=== PATIENT | male | born 1970 | race American Indian/Alaskan Native ===

== ENCOUNTER 2021-07-27 23:09 | Emergency (ER) | payer SELFPAY ==
[2021-07-28 02:46] VITALS: BP 113/75
[2021-07-28] MEDS ORDERED: ONDANSETRON 4 MG ODT TAB PO ONE (02:46)
[2021-07-28] MEDS ORDERED: DICYCLOMINE 10 MG/5 ML ORAL LIQD PO ONE (02:46)
[2021-07-28] MEDS ORDERED: LIDOCAINE VISCOUS 2% 15 ML ORAL LIQD PO ONE (02:47)
[2021-07-28] MEDS ORDERED: ALUM-MAG HYDROXIDE-SIMETHICONE 200-200-20MG/5ML ORAL LIQD 30 ML PO ONE (02:47)
--- NOTE | 2021-07-28 03:43 | Emergency Department Report ---
ED Abdominal Pain HPI - General Chief Complaint: Abdominal Pain Stated Complaint: STOMACH ACHE Time Seen by Provider: 07/28/21 02:45 Source: patient Mode of arrival: Ambulatory Limitations: No Limitations - History of Present Illness Initial Comments: 51-year-old male with no past medical history presents to the emergency department for complaint of abdominal pain and nausea vomiting. He states that he went to another facility earlier today for abdominal pain and pain is mostly resolved but he is still having nausea vomiting. He states that he had the pain for 3 days but denies fever dysuria diarrhea blood in stool blood in emesis or change in appetite. MD Complaint: abdominal pain -: Gradual, days(s) (3) Location: diffuse Radiation: none Severity scale (0 -10): 1 Quality: cramping Consistency: intermittent Associated Symptoms: nausea, vomiting. denies: diarrhea, fever, chills, dysuria, hematemesis, hematochezia, melena, hematuria, anorexia, syncope - Related Data Previous Rx's Medication Instructions Recorded Last Taken Type Ondansetron [Zofran Odt] 4 mg PO Q8HR PRN #12 tab.rapdis 07/28/21 Unknown Rx Allergies Allergy/AdvReac Type Severity Reaction Status Date / Time No Known Allergies Allergy Verified 07/28/21 03:01 ED Review of Systems ROS: Stated complaint: STOMACH ACHE Other details as noted in HPI Comment: All other systems reviewed and negative Constitutional: denies: chills, fever, malaise, weakness Eyes: denies: eye pain ENT: denies: ear pain Respiratory: denies: cough, shortness of breath, SOB with exertion, SOB at rest, wheezing Cardiovascular: denies: chest pain, palpitations, dyspnea on exertion, paroxysmal nocturnal dyspnea Endocrine: no symptoms reported Gastrointestinal: abdominal pain, nausea, vomiting. denies: diarrhea, constipation, hematemesis, melena, hematochezia Genitourinary: denies: urgency, dysuria, frequency, hematuria, discharge, testicular pain Musculoskeletal: denies: back pain Skin: denies: rash, lesions Neurological: denies: headache, weakness, numbness Psychiatric: denies: anxiety ED Past Medical Hx - Social History Smoking Status: Current Every Day Smoker Substance Use Type: Alcohol - Medications Home Medications: Home Medications Medication Instructions Recorded Confirmed Last Taken Type Ondansetron [Zofran Odt] 4 mg PO Q8HR PRN #12 tab.rapdis 07/28/21 Unknown Rx ED Physical Exam - General Limitations: No Limitations General appearance: alert, in no apparent distress - Head Head exam: Present: atraumatic, normocephalic - Eye Eye exam: Present: normal appearance. Absent: conjunctival injection - Neck Neck exam: Present: normal inspection. Absent: tenderness - Respiratory Respiratory exam: Present: normal lung sounds bilaterally. Absent: respiratory distress, wheezes, rales, chest wall tenderness, accessory muscle use - Cardiovascular Cardiovascular Exam: Present: regular rate, normal heart sounds - GI/Abdominal GI/Abdominal exam: Present: soft, normal bowel sounds. Absent: distended, tenderness, guarding, rebound, rigid - Extremities Exam Extremities exam: Present: normal inspection - Back Exam Back exam: Present: normal inspection, full ROM. Absent: tenderness, CVA tenderness (R), CVA tenderness (L) - Neurological Exam Neurological exam: Present: alert, oriented X3 - Psychiatric Psychiatric exam: Present: normal affect, normal mood - Skin Skin exam: Present: warm, dry, intact, normal color ED Course Vital Signs 07/28/21 02:42 Temperature 98.1 F Pulse Rate 83 Respiratory 20 Rate Blood Pressure 113/75 O2 Sat by Pulse 99 Oximetry - Reevaluation(s) Reevaluation #1: 07/28/21 03:41 Patient resting comfortably in room sound asleep. No complaints of at this time. ED Medical Decision Making - Medical Decision Making 51-year-old male with no past medical history presents to the emergency department for complaint of abdominal pain and nausea vomiting. He states that he went to another facility earlier today for abdominal pain and pain is mostly resolved but he is still having nausea vomiting. He states that he had the pain for 3 days but denies fever dysuria diarrhea blood in stool blood in emesis or change in appetite. All symptoms resolved after medication. Patient will be sent home with prescription for Zofran to use as needed for nausea. He was advised to follow- up with primary care provider or gastroenterology if worsening symptoms. Patient verbalized understanding of and agreement with plan of care. Critical care attestation.: If time is entered above; I have spent that time in minutes in the direct care of this critically ill patient, excluding procedure time. ED Disposition Clinical Impression: Abdominal pain Qualifiers: Abdominal location: generalized Qualified Code(s): R10.84 - Generalized abdominal pain Nausea and vomiting Qualifiers: Vomiting type: unspecified Qualified Code(s): R11.2 - Nausea with vomiting, unspecified Disposition: 01 HOME / SELF CARE / HOMELESS Is pt being admited?: No Does the pt Need Aspirin: No Condition: Stable Instructions: Nausea and Vomiting, Adult, [id number], Abdominal Pain, Adult, Fadp-to-Opsy Additional Instructions: Take medication as prescribed. Follow-up with primary care provider if no improvement or worsening symptoms. Prescriptions: Ondansetron [Zofran Odt] 4 mg PO Q8HR PRN #12 tab.rapdis PRN Reason: Nausea Referrals: RODRIGO BAILEY MD [Referring] - 3-5 Days Time of Disposition: 03:43
== END 2021-07-28 04:00 | disposition home or self-care (01) ==
LOC: ED 23:09
DX: R10.84 Generalized abdominal pain (principal); R11.2 Nausea with vomiting, unspecified; F17.200 Nicotine dependence, unspecified, uncomplicated; Z72.89 Other problems related to lifestyle; Z79.899 Other long term (current) drug therapy
CPT/HCPCS: 99282; J3490; Q0162